=== PATIENT | male | born 1945 | race African-American/Black ===

== ENCOUNTER 2017-03-26 21:40 | Inpatient (IN) | payer MEDICARE, MEDICAID ==
[~2017-03-26] VITALS: Ht 167.6 cm; Wt 76.7 kg
[~2017-03-26 21:40] MED LIST: ACET-2178 PO; BACL-141 PO; CHOL100044 PO; DOCU-138 PO; GABA300C PO; HYDR-4133 PO; HYDR-523 PO; diclofenac gel
[2017-03-26 22:45] LABS: CLARITY URINE CLOUDY (CLEAR); COLOR URINE RED (YELLOW); GLUCOSE URINE NEGATIVE (NEGATIVE); KETONES URINE NEGATIVE (NEGATIVE); LEUKOCYTE ESTERASE URINE 2+ (NEGATIVE); NITRITE URINE NEGATIVE (NEGATIVE); OCCULT BLOOD URINE 3+ (NEGATIVE); PH URINE 5.5 (4.5-8.0); PROTEIN URINE 1+ (NEGATIVE); SPECIFIC GRAVITY URINE 1.012 (1.005-1.030); UROBILINOGEN URINE 0.2 E.U./dL (0.2-1.0)
[2017-03-26 22:55] LABS: BASOPHILS % 1.1 % (0.0-2.0); EOSINOPHILS % 9.5 % (0.0-5.0); HEMOGLOBIN. 10.7 g/dL (14.0-18.0); LYMPHOCYTES % 25.6 % (20.0-50.0); MEAN CORPUSCULAR HEMOGLOBIN 28.5 pg (28.0-32.0); MEAN CORPUSCULAR VOLUME 87.5 fL (80.0-94.0); MEAN PLATELET VOLUME 8.1 fl (7.4-10.4); MONOCYTES % 5.7 % (2.0-8.0); NEUTROPHILS % 58.1 % (40.0-76.0); PLATELET 311 x1000/uL (130-400); RED BLOOD CELL COUNT 3.77 mill/uL (4.7-6.1); RED CELL DISTRIBUTION WIDTH 15.4 % (11.6-14.6)
[2017-03-26 23:00] LABS: CHLORIDE 107 mEq/L (98-107)
[2017-03-26] MEDS ORDERED: CEFTRIAXONE 1 G PREMIX 50 ML IV ONE (23:00)
[2017-03-26] MEDS ORDERED: HALOPERIDOL LACTATE 5MG/ML VIAL IM ONE (23:00)
[2017-03-26 23:02] LABS: INR 1.3; PROTHROMBIN TIME 13.2 sec (9.4-11.6)
[2017-03-26 23:08] LABS: CARBON DIOXIDE 25 mEq/L (21-32)
[2017-03-27 07:00] VITALS: BP 120/68
[2017-03-27 08:00] VITALS: BP 128/72
[2017-03-27] MEDS ORDERED: ACETAMINOPHEN 325MG TABLET PO SCH (08:45)
[2017-03-27] MEDS ORDERED: HYDROCODONE/ACETAMINOPHEN 5/325MG TABLET PO SCH (08:45)
[2017-03-27] MEDS ORDERED: ACETAMINOPHEN 325MG TABLET PO PRN (09:05)
[2017-03-27] MEDS ORDERED: ENOXAPARIN 40MG/0.4ML SYR SUBCUT SCH (09:15)
[2017-03-27] MEDS: CHOLECALCIFEROL (D3) 1000 UNIT TABLET PO SCH (10:53)
[2017-03-27] MEDS: DOCUSATE SODIUM 100MG CAPSULE PO SCH ×2 (10:53→16:32)
[2017-03-27] MEDS: GABAPENTIN 300MG CAPSULE PO SCH ×3 (10:53→16:32)
[2017-03-27 12:00] VITALS: BP 127/65
[2017-03-27] MEDS ORDERED: HYDROCODONE/ACETAMINOPHEN 5/325MG TABLET PO PRN (12:45)
[2017-03-27] MEDS: BACLOFEN 10MG TABLET PO SCH ×2 (13:50→16:32)
[2017-03-27] MEDS: HYDRALAZINE HCL 10MG TABLET PO SCH ×2 (13:50→17:52)
[2017-03-27] MEDS ORDERED: ENOXAPARIN 40MG/0.4ML SYR SUBCUT NR (15:30)
[2017-03-27 16:00] VITALS: BP 133/72
[2017-03-27 20:00] VITALS: BP 120/61
[2017-03-27] MEDS: CEFTRIAXONE 1 G PREMIX 50 ML IV SCH (21:09)
[2017-03-27] MEDS: ENOXAPARIN 80MG/0.8ML SYR SUBCUT SCH (21:14)
[2017-03-28] VITALS (8 sets, daily range): BP systolic 94–118; BP diastolic 53–80
[2017-03-28] MEDS: BACLOFEN 10MG TABLET PO SCH ×4 (00:47→17:15)
[2017-03-28] MEDS: HYDRALAZINE HCL 10MG TABLET PO SCH ×4 (00:48→17:05)
[2017-03-28 06:29] LABS: EOSINOPHILS % 8.7 % (0.0-5.0); HEMATOCRIT. 32.1 % (42.0-52.0); HEMOGLOBIN. 10.5 g/dL (14.0-18.0); LYMPHOCYTES % 22.4 % (20.0-50.0); MEAN CORPUSCULAR HEMOGLOBIN 28.7 pg (28.0-32.0); MEAN CORPUSCULAR VOLUME 87.7 fL (80.0-94.0); MEAN PLATELET VOLUME 8.9 fl (7.4-10.4); MONOCYTES % 6.4 % (2.0-8.0); NEUTROPHILS % 61.5 % (40.0-76.0); PLATELET 307 x1000/uL (130-400); RED BLOOD CELL COUNT 3.66 mill/uL (4.7-6.1); RED CELL DISTRIBUTION WIDTH 15.6 % (11.6-14.6)
[2017-03-28 08:36] LABS: CARBON DIOXIDE 25 mEq/L (21-32); CHLORIDE 105 mEq/L (98-107)
[2017-03-28] MEDS: GABAPENTIN 300MG CAPSULE PO SCH ×3 (09:16→17:15)
[2017-03-28] MEDS: DOCUSATE SODIUM 100MG CAPSULE PO SCH ×2 (09:16→17:15)
[2017-03-28] MEDS: CHOLECALCIFEROL (D3) 1000 UNIT TABLET PO SCH (09:16)
[2017-03-28] MEDS: ENOXAPARIN 80MG/0.8ML SYR SUBCUT SCH (20:55)
[2017-03-28] MEDS: CEFTRIAXONE 1 G PREMIX 50 ML IV SCH (20:55)
[2017-03-29] MEDS ORDERED: RIVAROXABAN 15 MG TABLET PO SCH (17:00)
== END 2017-03-28 22:20 | DRG 197 ==
LOC: ER 22:26 → EDBEDREQTM 03-27 00:01 → EDBEDREQ 03-27 00:01 → EDBEDREQSVC 03-27 00:01 → 8WST 03-27 00:11 → EDBEDREQTM 03-27 00:19 → EDBEDREQ 03-27 00:19 → ENRESERV 03-27 05:05
PROVIDERS: ADMIT Internal Medicine; ATTEND Internal Medicine
DX: I82.412 Acute embolism and thrombosis of left femoral vein (principal); G93.40 Encephalopathy, unspecified; E44.0 Moderate protein-calorie malnutrition; D68.9 Coagulation defect, unspecified; N39.0 Urinary tract infection, site not specified; D63.8 Anemia in other chronic diseases classified elsewhere; I10 Essential (primary) hypertension; Z96.641 Presence of right artificial hip joint; M19.90 Unspecified osteoarthritis, unspecified site; F29 Unspecified psychosis not due to a substance or known physiological condition; Z79.899 Other long term (current) drug therapy; Z87.01 Personal history of pneumonia (recurrent); Z87.440 Personal history of urinary (tract) infections
CPT/HCPCS: 36415; 70450; 71010; 74176; 80048; 80053; 81001; 83605; 85025; 85610; 87040; 87086; 92610; 93005; 93970; 99285; C1893; J0696; J1630; J1650; J7050

== ENCOUNTER 2019-09-28 21:17 | Emergency (ER) | payer MEDICARE, MEDICAID ==
[~2019-09-28] VITALS: Ht 172.7 cm; Wt 79.0 kg
[~2019-09-28 21:17] MED LIST changes: -ACET-2178 PO; -BACL-141 PO; -CHOL100044 PO; -DOCU-138 PO; +FURO-151 PO; -GABA300C PO; -HYDR-4133 PO; -HYDR-523 PO; +IPRA3AMP9 INH; +LEVO100V4 IV; +QUET25TA PO; -diclofenac gel
[2019-09-28 21:20] VITALS: BP 118/62
[2019-09-28] MEDS ORDERED: EPINEPHRINE 0.1MG/ML (1:10,000) 10ML SYR ONE (22:47)
[2019-10-01 15:46] LABS: COVID-19 PCR RNA DETECTED
[2019-10-01 15:49] LABS: COVID-19 PCR RNA DETECTED
== END 2019-09-28 22:47 | disposition expired ==
LOC: ER 21:25
DX: R06.03 Acute respiratory distress (principal); R41.82 Altered mental status, unspecified; J44.9 Chronic obstructive pulmonary disease, unspecified; I10 Essential (primary) hypertension; Z96.649 Presence of unspecified artificial hip joint; Z79.899 Other long term (current) drug therapy
CPT/HCPCS: 31500; 36556; 82962; 92950; 99285; J3490